=== PATIENT | female | born 1995 | race Caucasian/White ===

== ENCOUNTER 2020-10-19 01:12 | Emergency (ER) | payer MEDICAID, SELFPAY ==
[~2020-10-19] VITALS: Ht 157.5 cm; Wt 77.1 kg
[2020-10-19 01:20] VITALS: BP_SYST 123
--- NOTE | 2020-10-19 01:20 | NUR ---
Patient to ER bed GONZALEZ to gown for evaluation. Side rails up. Report given to AVELINO ALEJANDRE.
--- NOTE | 2020-10-19 01:22 | NUR ---
Patient BIB by family from home. C/O abdominal pain x today. Patient reported, had abdominal pain, diarrhea, nausea and vomitting. A/O, X4, abdominal pain, pain rate 7/10/ ,nausea, vomitting and diarrhea.
[2020-10-19] MEDS ORDERED: NACL 0.9% 1,000 ML IV ONE (01:30)
[2020-10-19] MEDS ORDERED: ONDANSETRON HCL 4 MG/2 ML VIAL IVP ONE (01:30)
--- NOTE | 2020-10-19 01:40 | NUR ---
# 20 gauge angiocath placed to LEFT AC. Use of asceptic technique. Opsite placed over site. Blood return noted. Flushed with 10 cc of normal saline. No evidence of infiltration noted. Patient tolerated well.
--- NOTE | 2020-10-19 01:42 | NUR ---
Medications given as ordered, health teaching provided and verbalized understanding
[2020-10-19] MEDS ORDERED: ONDANSETRON HCL 4 MG/2 ML VIAL ONE (01:44)
[2020-10-19] MEDS ORDERED: IBUP-1971 PO (02:09)
[2020-10-19] MEDS ORDERED: ONDA4TAB5 PO (02:09)
[2020-10-19] MEDS ORDERED: LOPE2CAP PO (02:09)
[2020-10-19 02:42] VITALS: BP_SYST 118
--- NOTE | 2020-10-19 02:42 | NUR ---
Patient given written and verbal discharge instructions and verbalizes understanding. ER MD discussed with patient the results and treatment provided. Patient in stable condition. ID arm band removed. IV catheter removed intact and dressing applied, no active bleeding. Rx of Ibuprofen, Imodium and Zofran given. Patient educated on pain management and to follow up with PMD. Pain Scale 1/10. Opportunity for questions provided and answered. Medication side effect fact sheet provided.
== END 2020-10-19 02:42 | disposition home or self-care (01) ==
LOC: SED 01:12
DX: R10.30 Lower abdominal pain, unspecified (principal); R11.2 Nausea with vomiting, unspecified; R19.7 Diarrhea, unspecified
CPT/HCPCS: 81002; 81025; 96361; 96374; 99283; J2405; J7030